=== PATIENT | male | born 1980 | race Caucasian/White ===

== ENCOUNTER 2017-02-20 09:18 | Emergency (ER) | payer MEDICAID, OTHER ==
[~2017-02-20] VITALS: Ht 177.8 cm; Wt 75.0 kg
[~2017-02-20 09:18] MED LIST: ADDE30CA PO; ALPR1 PO; OXYC15TA PO; OXYM10 PO
[2017-02-20 09:20] VITALS: BP 142/72; PULSE 64; RESP 15; TEMP 98.4; O2SAT 98
[2017-02-20] MEDS ORDERED: XANA2TAB2 PO (10:05)
--- NOTE | 2017-02-20 10:46 | PD ---
HPI Chief Complaint: Skin Problem Time Seen by Provider: 10:42 Travel History International Travel<30 days: No Contact w/Intl Traveler<30days: No Traveled to known affect area: No History of Present Illness HPI 37-year-old male presents to emergency department from [facility] for medical clearance of tract cunha to bilateral upper extremities. He denies the tract cunha are painful. Denies paresthesias, loss of sensation, decreased range of motion, decreased strength to bilateral upper extremity is. Denies fever, vomiting. He last injected heroin yesterday morning. Denies suicidal or homicidal ideations. He says he feels like he is starting to withdrawal and having some minor visual hallucinations. Has no medical complaints at this time. No known allergies. Symptoms are mild in severity. No other modifying factors or associated signs and symptoms. 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 OUT OF LT EAR) Endocrine: No Genitourinary: No Immune Disorder: No Musculoskeletal: No Neurologic: No Reproductive: No Respiratory: No ?: Not Past Surgical History Surgical History: No Previous Surgery Other Surgery: No Social History Alcohol Use: No Tobacco Use: No Substance Use: Yes (HEROIN- LAST USED 02/19/17) Allergies-Medications (Allergen,Severity, Reaction): Coded Allergies: No Known Allergies (Verified , 09/06/13) Reported Meds & Prescriptions Reported Meds & Active Scripts Active Reported Xanax (Alprazolam) 2 Mg Tab 2 Mg PO BID PRN Review of Systems Except as stated in HPI: all other systems reviewed are Neg Physical Exam Narrative GENERAL: Well-nourished, well-developed male patient, in no acute distress; afebrile, nontoxic-appearing SKIN: Warm and dry. Palmar aspect of bilateral forearms with track cunha that extend from the antecubital down to the wrist; no signs of infection; no erythema, edema, drainage; no tenderness on palpation. Bilateral upper extremities are supple and nontender 2+ radial pulses and sensory intact without erythema or edema. HEAD: Atraumatic. Normocephalic. EYES: Pupils equal and round. No scleral icterus. No injection or drainage. ENT: Mucosa pink and moist. Airway patent. NECK: Trachea midline. CARDIOVASCULAR: Regular rate and rhythm. No murmur appreciated. RESPIRATORY: No accessory muscle use. Breath sounds clear and equal bilaterally. No retractions or tachypnea. GASTROINTESTINAL: Abdomen soft, non-tender, nondistended. Positive bowel sounds. No hepato-splenomegaly, or palpable masses. No guarding. MUSCULOSKELETAL: No obvious deformities. No clubbing. No cyanosis. No edema. NEUROLOGICAL: Awake and alert. Oriented 3. No obvious cranial nerve deficits. Motor grossly within normal limits. Normal speech. PSYCHIATRIC: Appropriate mood and affect; insight and judgment normal. Data Data Last Documented VS Vital Signs Date Time Temp Pulse Resp B/P (MAP) Pulse Ox O2 Delivery O2 Flow Rate FiO2 02/20/17 10:48 02/20/17 09:[address] [facility] Medical Decision Making Medical Screen Exam Complete: Yes Emergency Medical Condition: Yes Medical Record Reviewed: Yes Differential Diagnosis Track cunha from intravenous drug use, medical clearance, IV drug use Narrative Course 37-year-old male sent from [facility] for medical clearance for bilateral upper extremity track cunha due to intravenous drug abuse. There are no signs of infection to the track cunha bilaterally. Bilateral upper extremities are supple and nontender 2+ radial pulses and sensory intact and without erythema or edema. Patient is afebrile and nontoxic-appearing. He denies fever, vomiting. Patient is medically cleared to return to [facility] for detox. Instructed patient to follow up with primary care provider. Patient verbalizes understanding and agreement with treatment plan. Patient is medically cleared and stable for discharge. Discussed reasons to return to the emergency department. Patient agrees with treatment plan. The patients vital signs are stable and the patient is stable for outpatient follow-up and treatment. Patient discharged home, stable and in no acute distress. Diagnosis Primary Impression: Track cunha due to intravenous drug abuse Referrals: Primary Care Physician [facility] Additional Instructions: Stop using heroin Stop injecting drugs Follow-up with [facility] Follow-up with primary care provider Return to the emergency department immediately if worsening of symptoms Med/Other Pt SpecificInfo: No Meds Exist/No RX given Disposition: 01 DISCHARGE HOME Condition: Stable Charmaine Whiteside Feb 20, 2017 10:46
== END 2017-02-20 10:55 | disposition home or self-care (01) ==
LOC: NEPD 09:18
DX: F11.10 Opioid abuse, uncomplicated (principal)
CPT/HCPCS: 99282